=== PATIENT | female | born 1970 | race Caucasian/White ===

== ENCOUNTER 2023-10-18 19:39 | Emergency (ER) | payer MEDICARE, SELFPAY ==
[2023-10-18 19:42] VITALS: BP 133/90; PULSE 104; RESP 18; TEMP 37.6; O2SAT 97; BMI 38.8
--- NOTE | 2023-10-18 19:45 | ED_ITS ---
<Statement entered by Glendy Hebert DO - 10/18/23 21:52> I was consulted by the KANG, and we discussed the complexity of the problems being addressed. I approved the treatment and management plan for this patient's care in the emergency department, thus performing a substantive portion of the medical decision making. Glendy Hebert DO Discharge Plan Disposition Patient Disposition: Home, Self-Care Condition: Good Prescriptions Prescriptions: New sulfamethoxazole-trimethoprim [Bactrim DS] 800-160 mg tablet 1 tab PO BID 5 Days Qty: 10 0RF Referrals Follow up/Referrals: Angus Barron [Primary Care Provider] - See instructions Activity Restrictions/Add. Instructions Additional Instructions/Restrictions: Please follow-up with your PCP this week for recheck. I have recommended that you have him refer you to a colorectal surgeon for excision of your hemorrhoids. I have sent a prescription in to your pharmacy and please take all of your medication till its gone. Return to ER for any worsening signs or symptoms as needed Clinical Impressions Clinical Impression: Headache Qualifiers: Headache type: unspecified Headache chronicity pattern: acute headache I ntractability: not intractable Qualified Code(s): R51.9 - Headache, unspecified Urinary tract infectious disease Qualifiers: Urinary tract infection type: site unspecified Hematuria presence: without hematuria Qualified Code(s): N39.0 - Urinary tract infection, site not specified Hemorrhoids Qualifiers: Hemorrhoid type: unspecified Qualified Code(s): K64.9 - Unspecified hemorrhoids Instructions Patient Instructions: DI for Hemorrhoids, DI for Urinary Tract Infection (UTI), DI for Headache Print Language Print Language: Macedonian Discharge ED Provider: Glendy Hebert General Adult HPI General Chief complaint: Abdominal Pain Stated complaint: Dizziness,bleeding hemorrhoids Time Seen by Provider: 10/18/23 19:45 History of Present Illness HPI narrative: Patient presents for evaluation of multiple complaints. Patient's primary presenting complaint is headache that began today. She reports that it is frontal in nature bilateral and she has photophobia and phonophobia. It came on gradually and is not the worst headache that she is ever had. Additionally patient reports diffuse lower abdominal discomfort but denies chest pain shortness of breath fever chills hemoptysis hematuria. Additionally patient reports bright red blood per rectum with defecation. She has a known history of hemorrhoids and has never been evaluated and they have been particularly painful lately. Related Data Previous Rx's ?Medication ?Instructions ?Recorded sulfamethoxazole 800 1 tab PO BID 5 days #10 tabs 10/18/23 mg-trimethoprim 160 mg tablet (Bactrim DS) Allergies Allergy/AdvReac Type Severity Reaction Status Date / Time No Known Allergies Allergy Verified 10/18/23 20:13 [facility] Disclaimer: The information contained in this section may have been updated after the patient was seen, as this information can be updated by other users. Social History (Updated 10/18/23 @ 21:49 by UNA Krishnamurthy) Smoking Status: Current every day smoker alcohol intake: never current occupational status: retired Travel in the last 8 weeks: None ROS Obtained: Yes Systems reviewed as appropriate & no additional complaints except as documented Physical Exam General General appearance: alert and in no apparent distress Head Head exam: atraumatic and normal inspection Eye Eye exam: Present normal appearance, PERRL and EOMI; Absent conjunctival redness ENT ENT exam: Present normal exam, normal oropharynx and mucous membranes moist Neck Neck exam: Present normal inspection and full ROM; Absent tenderness or lymphadenopathy Chest Chest inspection: Present normal inspection and symmetric chest wall rise Respiratory Respiratory exam: Present normal lung sounds bilaterally; Absent accessory muscle use Cardiovascular Cardiovascular exam: Present regular rate, normal rhythm and normal heart sounds Abdominal Exam Abdominal exam: Present soft, tenderness (Mild suprapubic tenderness to palpation) and normal bowel sounds; Absent distention, guarding, rebound or rigidity Rectal Exam Rectal exam: Present normal rectal tone and hemorrhoids (She has multiple hemorrhoids primarily on the right side and none are thrombosed or engorged and no evidence of visible bleeding and there is no fresh blood on my glove after digital exam); Absent heme (-) stool Extremities Exam Extremities exam: Present normal inspection and full ROM Back Exam Back exam: Present normal inspection and full ROM; Absent tenderness Neurological Exam Neurological exam: Present alert, oriented X3, CN II-XII intact and normal gait; Absent motor sensory deficit Psychiatric Psychiatric exam: Present normal affect and normal mood Skin Skin exam: Present warm, dry and normal color Medical Decision Making Medical Records Medical records reviewed: Yes I reviewed the patient's medical records. Jeramie Inquiry Pt receiving controlled substance: No Vital Signs: 10/18/23 19:42 10/18/23 19:58 10/18/23 21:47 Temperature 99.7 F H 99 F Temperature Source Oral Oral Pulse Rate 94 H 94 H Pulse Rate [Left] 104 H Respiratory Rate 18 16 16 Blood Pressure 118/73 130/88 Blood Pressure [Right Arm] 133/90 Blood Pressure Mean [Right Arm] 104 Blood Pressure Source Automatic Cuff Automatic Cuff Blood Pressure Source [Right Arm] Automatic Cuff Blood Pressure Position Sitting Sitting Blood Pressure Position [Right Arm] Sitting 02 Sat by Pulse Oximetry 97 97 Oxygen Delivery Method Room Air Room Air Room Air Lab Data Lab results reviewed: Yes I reviewed the patient's lab results. Lab Results 10/18/23 20:05: Stool Occult Blood Negative 10/18/23 20:09: Urine Color Yellow, Urine Appearance Clear, Urine pH 7.0, Ur Specific [place] 1.020, Urine Protein Negative, Urine Glucose (UA) Negative, Urine Ketones Negative, Urine Blood Negative, Urine Nitrate Negative, Urine Bilirubin Negative, Urine Urobilinogen 0.2, Ur Leukocyte Esterase 1+ A, Urine WBC 5-10, Ur Squamous Epith Cells 5-10, Urine Bacteria 2+ 10/18/23 20:15: WBC 6.9, RBC 4.55, Hgb 14.5, Hct 43.8, MCV 96.1, MCH 31.9 H, MCHC 33.1, RDW 13.1, Plt Count 164, MPV 9.1, Neut % (Auto) 86.9 H, Lymph % (Auto) 7.3 L, [place] % (Auto) 3.7, Eos % (Auto) 1.5, Baso % (Auto) 0.6, Neut # (Auto) 6.0, Lymph # (Auto) 0.5 L, [place] # (Auto) 0.3, Eos # (Auto) 0.1, Baso # (Auto) 0.0, Total Counted 100, Neutrophils % (Manual) 91 H, Lymphocytes % (Manual) 7 L, Eosinophils % (Manual) 1, Basophils % (Manual) 1.0, Platelet Estimate Normal, Stomatocytes 1+, Sodium 138, Potassium 4.2, Chloride 108 H, Carbon Dioxide 26, Anion Gap 8.2, BUN 9, Creatinine 0.60, Estimated Creat Clear 156, Estimated GFR 105, Est GFR ( Amer) 127, Glucose 121 H, Calcium 9.7, Magnesium 1.7, Total Bilirubin 0.7, AST 28, ALT 29, Alkaline Phosphatase 95, Total Protein 7.6, Albumin 4.5, Globulin 3.1, Albumin/Globulin Ratio 1.5, Lipase 83, Urine Opiates Screen Negative, Urine Methadone Screen Negative, Ur Barbituates Screen Negative, Ur Phencyclidine Scrn Negative, Ur Amphetamines Screen Negative, U Benzodiazepines Scrn Negative, Urine Cocaine Screen Negative, U Marijuana (THC) Screen Negative 10/18/23 20:15 10/18/23 20:15 Orders (Tests/Meds): ED MEDICATIONS Discontinued Medications Generic Name Dose Route Start Last Admin Trade Name Peggy PRN Reason Stop Dose Admin Acetaminophen 1,000 mg 10/18/23 20:07 10/18/23 20:20 Acetaminophen 1,000mg/100ml Vial IV 10/18/23 20:08 1,000 mg ONCE ONE Administration Dexamethasone Sodium Phosphate 10 mg 10/18/23 20:07 10/18/23 20:20 Dexamethasone 4mg/Ml 5ml Mdv IV 10/18/23 20:08 10 mg ONCE ONE Administration Diphenhydramine HCl 50 mg 10/18/23 20:07 10/18/23 20:20 Diphenhydramine 50mg/Ml Vial IV 10/18/23 20:08 50 mg ONCE ONE Administration Lactated Ringer's 1,000 mls @ 999 mls/hr 10/18/23 20:07 10/18/23 20:20 Lactated Ringer's 1000 Ml Bag IV 10/18/23 21:07 999 mls/hr .Q1H1M ONE Administration Iopamidol 75 ml 10/18/23 20:56 10/18/23 20:57 Iopamidol-370 (76%);100ml Bottle IV 10/18/23 20:57 75 ml ONCE ONE Administration Methocarbamol 500 mg 10/18/23 20:07 10/18/23 20:21 Methocarbamol 500mg Tablet PO 10/18/23 20:08 500 mg ONCE ONE Administration Prochlorperazine Edisylate 10 mg 10/18/23 20:07 10/18/23 20:20 Prochlorperazine 10mg/2ml Vial IV 10/18/23 20:08 10 mg ONCE ONE Administration Sodium Chloride 10 ml 10/18/23 20:56 10/18/23 20:57 Sodium Chloride 0.9% 10ml Syr (Rad Only) IV 11/17/23 20:55 10 ml NEEDED PRN Administration Maintain IV Site Trimethoprim/Sulfamethoxazole 1 each 10/18/23 21:15 10/18/23 21:23 Sulfa/Trimethoprim 1 Tablet PO 10/18/23 21:16 1 each ONCE ONE Administration ORDERS Category Date Time Status CT abdomen pelvis w con Stat Cat Scan 10/18/23 20:08 Completed CBC w/Auto Diff [Complete Blood Count Auto Diff] Stat Lab 10/18/23 20:15 Completed CMP [Comprehensive Metabolic Panel] Stat Lab 10/18/23 20:15 Completed Lipase Stat Lab 10/18/23 20:15 Completed Magnesium Stat Lab 10/18/23 20:15 Completed Occult Blood,Stool Stat Lab 10/18/23 20:05 Completed UA [Urinalysis and Microscopic] Stat Lab 10/18/23 20:09 Completed UDS [Drug Screen,Urine] Stat Lab 10/18/23 20:15 Completed Urine Culture Stat Micro 10/18/23 20:09 Received Medical Decision Narrative: In summary patient is a 2-year-old female who presents to the emergency department for evaluation of multiple complaints including headache lower abdominal pain and bright red blood per rectum. Patient is hemodynamically stable upon arrival, afebrile. Physical exam is remarkable for multiple external hemorrhoids none of which are thrombosed or actively bleeding and negative gross blood on digital rectal exam. Abdominal exam shows mild suprapubic tenderness without rebound or guarding or rigidity normal bowel sounds. Patient is neurologically intact with no Focal neurologic deficits and has no tenderness on palpation of the cranium or cervical or thoracic spine. No paresthesias. She is neurovascular intact in all 4 extremities.. Differential diagnosis includes simple headache versus migraine headache versus GI bleed versus constipation versus UTI etc. Initial workup will be conducted with hematologic labs urinalysis urine drug screen CT scan abdomen pelvis. Initial interventions include crystalloid bolus headache cocktail. Initial workup reviewed by me shows that her stool for occult blood is negative hematologic labs are nonactionable and my informal interpretation of CT scan abdomen pelvis shows chronic changes but no bowel obstruction no stigmata of gastrointestinal bleeding large stool burden with slightly gas-filled bowel loops. Upon repeat evaluation patient had complete resolution of her symptoms after initial intervention. Given this patient is appropriate for discharge with prescription for Bactrim with first dose given here, referral back to her PCP in 48 hours for referral for colorectal surgery evaluation. Critical Care Critical Care Time Critical Care Time: No
[2023-10-18 19:58] VITALS: BP 118/73; PULSE 94; RESP 16; O2SAT 97
--- NOTE | 2023-10-18 20:08 | CT_ITS ---
PROCEDURE INFORMATION: Exam: CT Abdomen And Pelvis With Contrast Exam date and time: 10/18/2023 8:52 PM Age: 52 years old Clinical indication: Abdominal pain; Prior surgery; Surgery date: 6+ months; Surgery type: ; Additional info: Acute abdominal pain bright red blood per rectum TECHNIQUE: Imaging protocol: Computed tomography of the abdomen and pelvis with contrast. Radiation optimization: All CT scans at this facility use at least one of these dose optimization techniques: automated exposure control; mA and/or kV adjustment per patient size (includes targeted exams where dose is matched to clinical indication); or iterative reconstruction. Contrast material: ISOVUE; Contrast volume: 75 ml; Contrast route: IV; COMPARISON: No relevant prior studies available. FINDINGS: Liver: No suspicious liver lesions. Gallbladder and biliary ducts: Gallbladder contains gallstones. No gallbladder wall thickening or pericholecystic fluid. Pancreas: Unremarkable. Spleen: Unremarkable. Adrenal glands: Unremarkable. Kidneys and ureters: Unremarkable. Stomach and bowel: Architectural distortion of multiple small bowel loops with sharply angulated contours and matted or string-like appearance throughout the abdomen consistent with mesenteric adhesions/scarring. Multiple small bowel loops in the upper abdomen are moderately distended with gas and air-fluid levels compatible with ileus. No evidence of small bowel obstruction or acute inflammatory changes in the gastrointestinal tract. No evidence of abnormal bowel mass lesion, hematoma, or active contrast extravasation. Appendix: No evidence of appendicitis. Intraperitoneal space: No free fluid. No pneumoperitoneum. Vasculature: Unremarkable. Lymph nodes: Unremarkable. Urinary bladder: Unremarkable. Reproductive: Unremarkable. Bones/joints: No evidence of acute osseous abnormality. Soft tissues: Small fat containing umbilical hernia. No evidence of acute inflammation. IMPRESSION: 1. No acute findings in the abdomen or pelvis. No evidence of active gastrointestinal bleeding. 2. Multiple small bowel loops in the upper abdomen are moderately distended with gas and air-fluid levels compatible with ileus. No evidence of small bowel obstruction or acute inflammatory changes in the gastrointestinal tract. 3. Mesenteric adhesions throughout the abdomen consistent with chronic sequelae of prior abdominal surgery vs other prior acute or chronic inflammatory insult (e.g. inflammatory bowel disease). 4. Cholelithiasis without evidence of acute cholecystitis.
[2023-10-18] MEDS: DEXAMETHASONE 4MG/ML 5ML MDV 10 MG IV (20:20)
[2023-10-18] MEDS: ACETAMINOPHEN 1,000MG/100ML VIAL 1000 MG IV (20:20)
[2023-10-18] MEDS: LACTATED RINGERS 1000ML 1,000 ML 999 ML IV (20:20)
[2023-10-18] MEDS: diphenhydrAMINE 50MG/ML VIAL 50 MG IV (20:20)
[2023-10-18] MEDS: PROCHLORPERAZINE 10MG/2ML VIAL 10 MG IV (20:20)
[2023-10-18] MEDS: METHOCARBAMOL 500MG TABLET 500 MG PO (20:21)
[2023-10-18 20:24] LABS: Microscopic, Urine URINE MICROSCOPIC (MICROSCOPIC)
[2023-10-18 20:27] LABS: Basophils % 0.6 % (0.1-2.0); Eosinophils # 0.1 K/mm3 (0.0-0.4); Eosinophils % 1.5 % (0.1-12.0); Hematocrit 43.8 % (37.0-47.0); Hemoglobin 14.5 g/dL (12.2-16.2); Lymphocytes # 0.5 K/mm3 (0.7-4.5); Lymphocytes % 7.3 % (10-50); Mean Corpuscular HGB Conc 33.1 g/dL (31.8-35.4); Mean Corpuscular Hemoglobin 31.9 pg (27.0-31.2); Mean Corpuscular Volume 96.1 fl (81-99); Mean Platelet Volume 9.1 fl (7.4-10.4); Monocytes # 0.3 K/mm3 (0.1-1.0); Monocytes % 3.7 % (1.7-9.3); Neutrophils % 86.9 % (37.0-80.0); Platelet Count 164 K/mm3 (142-424); Red Blood Count 4.55 M/mm3 (4.20-5.40); Red Cell Distribution Width 13.1 % (11.5-17.5); White Blood Count 6.9 K/mm3 (4.8-10.8)
[2023-10-18 20:28] LABS: Appearance,Urine CLEAR (Clear); Bilirubin,Urine Negative (Negative); Blood, Urine Negative (Negative); Color,Urine YELLOW (Yellow); Glucose,Urine (UA) Negative (Negative); Ketones,Urine Negative (Negative); Leukocyte Esterase,Urine 1+ (Negative); Nitrate,Urine Negative (Negative); Protein,Urine Negative (Negative); Urobilinogen,Urine 0.2 EU/dl (0.2)
[2023-10-18 20:30] LABS: MANUAL DIFFERENTIAL MANUAL DIFFERENTIAL (MANUAL DIFF)
[2023-10-18 20:40] LABS: Benzodiazepines Screen,Urine Negative ng/ml (<200)
[2023-10-18 20:41] LABS: Amphetamine/Metha Screen,Urine Negative ng/ml (<1000); Barbiturates Screen,Urine Negative ng/ml (<200)
[2023-10-18 20:42] LABS: Cannabinoid Screen,Urine Negative ng/ml (<50); Cocaine Screen,Urine Negative ng/ml (<300)
[2023-10-18 20:43] LABS: Albumin Level 4.5 g/dl (3.5-5.0); Chloride 108 mmol/L (98-107); Methadone Screen,Urine Negative ng/ml (<300); Potassium 4.2 mmoL/L (3.5-5.1); Sodium 138 mmol/L (136-145)
[2023-10-18 20:44] LABS: Opiate Screen,Urine Negative ng/ml (<300); Phencyclidine Screen,Urine Negative ng/ml (<25)
[2023-10-18 20:46] LABS: Alanine Aminotransferase 29 U/L (12-78); Albumin/Globulin Ratio 1.5 (1.1-1.8); Alkaline Phosphatase 95 U/L (38-126); Anion Gap 8.2 mEq/L (5-15); Aspartate Amino Transferase 28 U/L (14-36); Bilirubin,Total 0.7 mg/dl (0.2-1.3); Blood Urea Nitrogen 9 mg/dl (7-17); Calcium 9.7 mg/dl (8.4-10.2); Carbon Dioxide 26 mmol/L (22.0-30.0); Creatinine Clearance Estimated 156 mL/min (50-200); Estimated Glomerular Filt Rate 105 ml/min (>60); GFR (African American) 127 ML/MIN (>60); Globulin 3.1 g/dL (1.3-3.2); Glucose 121 mg/dl (74-100); Lipase 83 U/L (23-300); Total Protein,Serum 7.6 g/dl (6.3-8.2)
[2023-10-18 20:47] LABS: Magnesium 1.7 mg/dl (1.6-2.3)
[2023-10-18 20:52] LABS: Bacteria,Urine 2+ /lpf
--- NOTE | 2023-10-18 20:55 | PC.NURSE ---
Pt to CT via Wheelchair
[2023-10-18] MEDS: IOPAMIDOL-370 (76%);100ML BOTTLE 75 ML IV (20:57)
[2023-10-18] MEDS: SODIUM CHLORIDE 0.9% 10ML SYR (RAD ONLY) 10 ML IV (20:57)
[2023-10-18] MEDS: SULFA/TRIMETHOPRIM 1 TABLET 1 EACH PO (21:23)
--- NOTE | 2023-10-18 21:28 | PC.NURSE ---
Pt ambulatory to restroom
[2023-10-18 21:41] LABS: Eosinophils % 1 % (0-3); Lymphocytes % 7 % (10-50); Neutrophils % 91 % (42-76); Platelet Estimate Normal; Stomatocytes 1+; Total Cells Counted 100
[2023-10-18 21:45] LABS: Occult Blood,Stool Negative (Negative)
[2023-10-18 21:47] VITALS: BP 130/88; PULSE 94; RESP 16; TEMP 37.2; O2SAT 97
== END 2023-10-18 21:48 | disposition home or self-care (01) ==
PROVIDERS: Physician Assistant; Emergency Provider Emergency Medicine; PCP Pediatrics
DX: N39.0 Urinary tract infection, site not specified (principal); B96.89 Other specified bacterial agents as the cause of diseases classified elsewhere; R10.30 Lower abdominal pain, unspecified; R51.9 Headache, unspecified; K64.9 Unspecified hemorrhoids; R42 Dizziness and giddiness; F17.210 Nicotine dependence, cigarettes, uncomplicated
CPT/HCPCS: 74177; 80053; 80307; 81001; 82272; 83690; 83735; 85007; 85025; 85027; 87086; 96361; 96374; 96375; 99285; G0328; J0131; J0780; J1100; J1200; J7120; Q9967

== ENCOUNTER 2024-10-14 10:38 | Emergency (ER) | payer MEDICARE, SELFPAY ==
[2024-10-14 10:45] VITALS: BP 146/84; PULSE 92; RESP 20; TEMP 36.8; O2SAT 96; BMI 43.9
--- NOTE | 2024-10-14 10:55 | CT_ITS ---
PROCEDURE INFORMATION: Exam: CT Head Without Contrast Exam date and time: 10/14/2024 11:25 AM Age: 53 years old Clinical indication: Pain; Headache; Additional info: Bifrontal ROSSI TECHNIQUE: Imaging protocol: Computed tomography of the head without contrast. Radiation optimization: All CT scans at this facility use at least one of these dose optimization techniques: automated exposure control; mA and/or kV adjustment per patient size (includes targeted exams where dose is matched to clinical indication); or iterative reconstruction. COMPARISON: No relevant prior studies available. FINDINGS: Brain: No evidence of acute parenchymal hemorrhage, extra-axial collection or local regional mass effect. Cerebral ventricles: The ventricles, sulci and cisterns are normal in size and configuration. No hydrocephalus or midline structure shift Pituitary gland and sella: Sellar/parasellar structures, orbits and craniocervical junction are unremarkable Paranasal sinuses: Visualized sinuses are unremarkable. No fluid levels. Mastoid air cells: Visualized mastoid air cells are well aerated. Bones: No calvarial fracture Soft tissues: Unremarkable. IMPRESSION: No acute intracranial abnormality. No calvarial fracture.
--- NOTE | 2024-10-14 10:58 | [facility].EDGENADL ---
Discharge Plan Disposition Patient Disposition: Home, Self-Care Prescriptions Prescriptions: New azithromycin [Zithromax Z-Scout] 250 mg tablet 250 mg PO DAILY 4 Days Qty: 4 0RF Rx Instructions: Started on 10-15-2024 No Action sulfamethoxazole-trimethoprim [Bactrim DS] 800-160 mg tablet 1 tab PO BID 5 Days Qty: 10 0RF Referrals Follow up/Referrals: Angus Barron [Primary Care Provider, Medical] - See instructions Activity Restrictions/Add. Instructions Additional Instructions/Restrictions: At this time it was felt you are safe to be discharged home. If new or worsening symptoms please do not hesitate to return the emergency department. Please take antibiotics as prescribed and if your headache continues follow-up with your family doctor as soon as you are able next week. Clinical Impressions Clinical Impression: Headache, Cat scratch Print Language Print Language: Jordanian Discharge ED Provider: Kike Schmidt General Adult HPI General Chief complaint: Upper Respiratory Infection Stated complaint: Scratch by Cat 2 days ago; Not feeling well Time Seen by Provider: 10/14/24 10:45 Mode of Arrival: Ambulatory Source of Information: Patient and Spouse Description of Symptoms (Recalled from ER Triage Doc. by RN): pt is here for flu like s/s that have been going on since yesterday. this included headache and nausea and patient also noted she got scratched by a cat two days ago. History of Present Illness HPI narrative: Patient is a 53-year-old female with past medical history of chronic frequent bitemporal headaches who presents emergency department for evaluation of feeling unwell after a cat scratch. Patient had a cat scratch a few days ago on her left upper extremity and over the last 24 hours has had generalized weakness, bitemporal headache. No vision changes reported. Tdap up-to-date. Patient no longer has her menstrual period. Please note that above description of symptoms, in this electronic medical record under categorization of recalled from ER triage doctor by RN are reflective of an initial nursing assessment, however, is not reflective of my full history and physical exam that was personally taken and clarified. Consequentially, this preceding description of symptoms, which may include the patient's categorized chief complaint in the EMR, do not reflect my personal clinical impression, and the ultimate description of history of present illness and patient stated complaints should be deferred to this section of the note. Unless stated otherwise or congruent with this section of the note, additional signs, symptoms, or incongruence should be interpreted as inaccurate with my clinical impression. Related Data Previous Rx's ?Medication ?Instructions ?Recorded sulfamethoxazole 800 1 tab PO BID 5 days #10 tabs 10/18/23 mg-trimethoprim 160 mg tablet (Bactrim DS) azithromycin 250 mg tablet 250 mg PO DAILY cat scratch 4 days 10/14/24 (Zithromax Z-Scout) #4 tabs Allergies Allergy/AdvReac Type Severity Reaction Status Date / Time No Known Allergies Allergy Verified 10/18/23 20:13 [facility] Disclaimer: The information contained in this section may have been updated after the patient was seen, as this information can be updated by other users. Social History (Updated 10/18/23 @ 21:49 by UNA Krishnamurthy) Smoking Status: Current every day smoker alcohol intake: never current occupational status: retired Travel in the last 8 weeks?: None Have you lived/traveled outside [place] in past 30 days?: No Contact w/someone who lives/traveled outside [place] past 30 days?: No Exposure to someone with infectious disease in past 14 days?: No Do you have a fever (greater than 100.4 F or 38 C)?: No Have you tested positive for COVID-19?: No Exposed to someone with COVID-19 in past 14 days?: No Do you have a sore throat?: No Do you have a cough?: No Do you have any weakness?: Yes Do you have any diarrhea?: No Are you experiencing any unusual bleeding?: No Do you have any muscle aches/pain?: No Do you have any abdominal pain?: No Are you experiencing loss of taste or smell?: No ROS Obtained: Yes Systems reviewed as appropriate & no additional complaints except as documented Physical Exam General General appearance: alert Comment: Appearing uncomfortable in bed Head Head exam: atraumatic and normocephalic Eye Eye exam: Present PERRL and EOMI ENT ENT exam: Present mucous membranes moist Neck Neck exam: Present normal inspection Chest Chest inspection: Present normal inspection and symmetric chest wall rise Respiratory Respiratory exam: Present normal lung sounds bilaterally; Absent respiratory distress Cardiovascular Cardiovascular exam: Present regular rate and normal rhythm Abdominal Exam Abdominal exam: Present soft; Absent tenderness Extremities Exam Extremities exam: Present other (Scratches on the left upper extremity adjacent to the elbow. No obvious lymphadenitis palpable) Neurological Exam Neurological exam: Present alert and CN II-XII intact; Absent motor sensory deficit Psychiatric Psychiatric exam: Present normal affect Skin Skin exam: Present warm and dry Medical Decision Making Medical Records Screening: Per USPSTF and CDC recommendations, given the prevalence of disease in our region, it is our hospital?s policy to screen for HIV and viral Hepatitis for all patients aged 18 and over and those with ongoing risk factors. [place] Inquiry Pt receiving controlled substance: No Vital Signs: 10/14/24 10:45 Temperature 98.2 F Temperature Source Oral Pulse Rate [Left Radial] 92 H Respiratory Rate 20 Blood Pressure [Right Arm] 146/84 H Blood Pressure Mean [Right Arm] 104 02 Sat by Pulse Oximetry 96 Oxygen Delivery Method Room Air Lab Data Lab Results 10/14/24 11:00: SARS-CoV-2 (PCR) Not detected, Influenza A Untype (PCR) Not detected, Influenza Type B (PCR) Not detected 10/14/24 11:11: WBC 9.7, RBC 4.41, Hgb 13.9, Hct 40.2, MCV 91.2, MCH 31.5 H, MCHC 34.6, RDW 12.2, Plt Count 208, MPV 10.3, Neut % (Auto) 83.8 H, Lymph % (Auto) 12.7, [place] % (Auto) 2.3, Eos % (Auto) 0.4, Baso % (Auto) 0.3, Neut # (Auto) 8.1 H, Lymph # (Auto) 1.2, [place] # (Auto) 0.2, Eos # (Auto) 0.0, Baso # (Auto) 0.0, Sodium 134 L, Potassium 4.0, Chloride 103, Carbon Dioxide 23, Anion Gap 12.0, BUN 8, Creatinine 0.50 L, Estimated Creat Clear 93, Estimated GFR 129, Est GFR ( Amer) 156, Glucose 128 H, Calcium 9.4, Total Bilirubin 1.1, AST 32, ALT 31, Alkaline Phosphatase 97, Total Protein 7.8, Albumin 4.7, Globulin 3.1, Albumin/Globulin Ratio 1.5 10/14/24 11:11 10/14/24 11:11 Orders (Tests/Meds): ED MEDICATIONS Generic Name Dose Route Start Last Admin Trade Name Freq PRN Reason Stop Dose Admin Lactated Ringer's 1,000 mls @ 999 mls/hr 10/14/24 10:55 10/14/24 11:07 Lactated Ringer's 1000 Ml Bag IV 10/14/24 11:55 999 mls/hr .[id number] ONE Administration Discontinued Medications Generic Name Dose Route Start Last Admin Trade Name Freq PRN Reason Stop Dose Admin Acetaminophen 1,000 mg 10/14/24 10:55 10/14/24 11:07 Acetaminophen 500mg Tab PO 10/14/24 10:56 1,000 mg ONCE ONE Administration Azithromycin 500 mg 10/14/24 10:57 10/14/24 11:07 Azithromycin 250mg Tablet PO 10/14/24 10:58 500 mg ONCE ONE Administration Diphenhydramine HCl 50 mg 10/14/24 10:55 10/14/24 11:07 Diphenhydramine 50mg/Ml Vial IV 10/14/24 10:56 50 mg ONCE ONE Administration Prochlorperazine Edisylate 5 mg 10/14/24 10:55 10/14/24 11:07 Prochlorperazine 10mg/2ml Vial IV 10/14/24 10:56 5 mg ONCE ONE Administration ORDERS Category Date Time Status CT head/brain wo con Stat Cat Scan 10/14/24 10:55 Completed CBC w/Auto Diff [Complete Blood Count Auto Diff] Stat Lab 10/14/24 11:11 Completed CMP [Comprehensive Metabolic Panel] Stat Lab 10/14/24 11:11 Completed Rapid PCR Covid and Flu A/B Stat Lab 10/14/24 11:00 Completed Medical Decision Narrative: In summary patient is a 53-year-old female past medical history described above presents emergency department for evaluation of bitemporal headache in setting of cat scratch and generally feeling unwell. Patient is hemodynamically stable and nontoxic-appearing upon arrival, appears uncomfortable, afebrile, nonfocal neurologic exam. Shared decision-making discussion was had with respect to imaging given that she has these headaches frequently. We will proceed with CT imaging of the head at this time. Differential includes primary headache, intracranial hemorrhage, viral syndrome, among others. Will respect to her cat scratch disease she does not have any obvious regional lymphadenitis however her body habitus makes it difficult to palpate these lymph nodes. Benefits outweigh the risk for treatment will treat with azithromycin first dose administered here. Headache cocktail will be administered. Tdap is up-to-date. Workup reviewed by me, hematologic labs are nonactionable no significant leukocytosis no transfusable anemia, no CINDY or critical electrolyte abnormality. Viral swab negative. Noncontrasted CT scan informally visualized by me, no acute large intra-axial hemorrhage or mass affect. Formal read shows no acute intracranial abnormality. Upon repeat evaluation patient is resting in bed, significantly improved headache, nonfocal exam. Given this patient is appropriate for outpatient management at this time and out of an abundance of caution will be treated with a short course of azithromycin for cat scratch and was given return precautions. Critical Care Critical Care Time Critical Care Time: No
--- OUTSIDE RECORDS SUMMARY | 2024-10-14 11:00 | XMS_ITS | Clinical Summary ---
Author Organization [facility] Address [address] [place] [address] Phone Care Team Providers Care Field Specialist Name Role Phone Jeferson Barron MD Primary Care Provider [phone] Allergies No known active allergies Medications linaCLOtide (LINZESS) 145 mcg Oral Capsule Take 1 Capsule by mouth daily. 60 Capsule 2 07/12/19 24 Active atorvastatin (LIPITOR) 20 mg Oral TabletIndications: Mixed hyperlipidemia Take 1 Tablet by mouth daily. 90 Tablet 3 05/30/19 25 Active budesonide-glycopy r-formoterol (BREZTRI AEROSPHERE) 160-9-4.8 mcg/actuation Inhl HFA Aerosol InhalerIndications :COPD, moderate ([facility]) Inhale 2 Puffs into the lungs 2 times daily. 10.7 g 11 05/30/19 25 Active ondansetron (ZOFRAN-ODT) 4 mg Oral Tablet, Rapid DissolveIndication s:Nausea DISSOLVE 1 TABLET ON TONGUE EVERY DAY NEEDED FOR NAUSEA 30 Tablet 2 09/19/19 25 Active ondansetron (ZOFRAN-ODT) 4 mg Oral Tablet, Rapid DissolveIndication s:Nausea DISSOLVE 1 TABLET ON TONGUE EVERY DAY NEEDED FOR NAUSEA 30 Tablet 2 06/16/19 25 025 Discontinued Active Problems Patient Care Coordination No te Formatting of this note migh t be different from the original. [facility] audit completed by Savi Anguiano RN on 12/21/2021. Problem Noted Date Diagnosed Date COPD, moderate 05/29/2024 Assessment & Plan (05/29/2024 3:59 PM EDT): New diagnosis of COPD today. Will start on Breztri per below and follow-up response at next visit. Orders: lbttkoyeeo-dtxgsmth-sumtjtcgil (BREZTRI AEROSPHERE) 160-9-4.8 mcg/actuation Inhl HFA Aerosol Inhaler; Inhale 2 Puffs into the lungs 2 times daily. Mixed incontinence 03/10/2014 Mixed hyperlipidemia 03/10/2014 Overview (03/26/2021): The 10-year ASCVD risk score ([place] Jr., et al., 2013) is: 7.5% Atorvastatin 20 mg daily. Assessment & Plan (05/29/2024 3:59 PM EDT): Continue statin for cardiovascular risk reduction Orders: HEMOGLOBIN A1C; Future COMPREHENSIVE METABOLIC PANEL; Future TSH REFLEX; Future LIPID PANEL REFLEX; Future atorvastatin (LIPITOR) 20 mg Oral Tablet; Take 1 Tablet by mouth daily. Tobacco abuse 05/04/2013 Gastroesophageal reflux disease without esophagi tis 05/04/2013 Obesity (BMI 30-39.9) 05/04/2013 Resolved Problems Problem Noted Date Diagnosed Date Resolved Date Tobacco abuse counseling 05/04/201301/2025 Constipation 05/04/2013 09/09/2014 Encounters Date Type Department Care Team Description 09/18/2024 Refill [facility] [address] [place] [address] Jeferson Barron MD Medication Refill from Last 3 Months Immunizations Immunization Administration Dates Next Due Hepatitis B (Recombinant), Adjuvanted 05/30/2023 ,10/07/2022 Influenza Seasonal Injectable PF 05/29/2024 Influenza Vaccine Quadrivalent PF 01/24/2023, Influenza Vaccine, Unspecified Formulation 12/08 Influenza Virus Vaccine Quadrivalant, Flublok ,03/24/2021 Moderna SARS-CoV-2 Booster V accine 18+ Yrs (Light Blue Border) 03/24/2021 Pfizer SARS-CoV-2 Bivalent B ooster Vaccine 12+ Years ([place] border) 01/14/2022 QQTechnology SARS-CoV-2 Vaccine Kai-sucrose 12+ Yrs 1 03/26/2022 Pneumococcal Conjugate Vaccine 20 Valent 023 Tdap 12/08/2016,05/04/2013 Zoster Recombinant 03/30/2021 Surgical History Surgery Date Site/Laterality Comments SECTION X1 Medical History Medical History Date Comments Hyperlipidemia Family History Medical History Relation Name Comments Unknown Father Arthritis Mother had knee surger y High Blood Pressure Mother Diabetes Other niece Liver Disease Sister 4 Heart Disease Sister 5 mi age 50 Breast Cancer Sister 6 Diabetes Son Relation Name Status Comments Brother 1 Alive Brother 2 Alive Brother 3 Alive Father Maternal Grandfather Maternal Grandmother Mother Other Paternal Grandfather Paternal Grandmother Sister 1 Alive Sister 2 Alive Sister 3 Alive Sister 4 Sister 5 Sister 6 Son Social History Tobacco Use Types Packs/Day Years Used Date Smoking Tobacco: Every Day Cigarettes 1 38.6 Started: 03/21/1986 Smokeless Tobacco: Never Tobacco Cessation:Ready to Q uit: Not Asked; Counseling Given: Not Answered Alcohol Use Standard Drinks/Week Comments No 0 (1 standard drink = 0.6 oz pur e alcohol) PHQ-2 Answer Date Recorded PHQ-2 Total Score 0 05/29/2024 Sexually Active Control Partners Comments Yes Male Comments No Sex and Gender Information Value Date Recorded Sex Assigned at Not on file Legal Sex Female 3:49 AM EDT Gender Identity Not on file Sexual Orientation Not on file Obstetrics History Para Term AB IAB SAB Ectopic Multiple Livin g Live Births 3 3 3 3 3 Date Outcome GA Total Labor Labor/2nd/3rd Weight Sex Type Anes PTL Lis A1 A5 Name Clin Term 10 lb 10 oz (4.819 kg) M CS-Un spec Comments:Too big, leonid ch Term M Vag-S pont Term M Vag-S pont Comments No problems with pregnancies or deliveries except Redd. Last Filed Vital Signs Vital Sign Reading Time Taken Comments Blood Pressure 110/78 06/08/2024 2:52 PM EDT Pulse 82 06/08/2024 2:52 PM EDT Temperature 36.7 C (98.1 F) 06/08/2024 2:52 PM EDT Respiratory Rate 18 06/08/2024 2:52 PM EDT Oxygen Saturation 98% 06/08/2024 2:52 PM EDT Inhaled Oxygen Concentration - - Weight 91.2 kg (201 lb) 06/08/2024 2:52 PM EDT Height 152.4 cm (5') 05/29/2024 3:36 PM EDT Body Mass Index 39.26 05/29/2024 3:36 PM EDT Plan of Treatment Health Maintenance Due Date Last Done Comments FIT 12/18/2015 Sigmoidoscopy 12/18/2015 Virtual Colonography 12/18/2015 Zoster (2 of 2) 05/25/2021 03/30/2021 COVID-19 Vaccine ( season) 2023 01/24/2023, 01/14/2022, 03/24/2021, Additional history exists Cologuard 04/01/2024 04/01/2021, 04/01/2021 Influenza Vaccine (#1) 2024 , 01/24/2023, 01/14/2022, Additional history exists Low Dose Lung Cancer Screening 05/21/2025 05/21/2024, 05/12/2023, 04/26/2022 Wellness Exam Medicare 05/30/2025 5, 03/29/2022, 03/24/2021 Breast Cancer Screening 05/21/2026 05/22/19, 04/04/2023, 04/05/2022, Additional history exists DTaP/TDaP/Td (3 - Td or Tdap) 12/08/2026 12/08/2016, 05/04/2013 Pap Smear 06/09/2027 06/08/2024, 03/21, 06/01/2013 Colon Cancer Screening 08/16/2028 Colonoscopy 08/16/2028 08/17/2023 Cervical Cancer Screening 06/08/2029 HPV/Pap Cotest 06/08/2029 06/08/2024 Pneumococcal Vaccine 50+ Completed 10/07/2022 Hepatitis B Vaccine Completed 05/30/2023, Meningococcal B Vaccine Aged Out No l onger eligible based on patient's age to complete this topic Goals Goal Patient Goal Type Associated Problems Recent Progress Patient-Stated? Author Maintain a healthy diet, exercise regularly and maintain an ideal body weight General No Jeferson Barron MD Stay Tobacco Free Lifestyle No Jeferson Barron MD Weight < 175 lb (79.379 kg) Weight 201 lb (91.2 kg)( 2:52 PM EDT) No Meredith Gan MD Procedures Procedure Name Priority Date/Time Associated Diagnosis Comments SHAFT REPAIRER CYTOLOGY REQUEST (PAP ONLY) Routine 06/08/2024 3:05 PM EDT Pap smear for cervical cancer screening MM MAMMO DIGITAL [place] SCREEN BILAT Routine 05/21/2024 12:23 PM EST Encounter for screening mammogram for malignant neoplasm of breast CT LUNG CANCER SCREENING LOW DOSE Routine 05/21/2024 12:04 PM EST Screening for malignant neoplasm of respiratory organ Personal history of tobacco use, presenting hazards to health COLONOSCOPY Routine 08/17/2023 1:20 PM EDT Rectal bleeding Constipation, unspecified constipation type COLOGUARD Routine 04/01/2021 2:00 PM EST Special screening for malignant neoplasms, colon Screening for malignant neoplasm of the rectum from Last 3 Months or Most Recently Relevant to Health Maintenance Results * SHAFT REPAIRER CYTOLOGY REQUEST (PAP ONLY) (06/08/2024 3:05 PM EDT) CASE REPORT Gynecologic Cytology Report Case: [id number] Authorizing Provider: Lisa Bryant DO Collected: 06/08/2024 1505 Ordering Location: [facility] Received: 06/08/2024 1505 First Screen: Marian Cui CT Specimen: LIQUID-BASED PAP - CERVICAL/ENDOCERV ICAL, Cervix, Endocervical 06/12/2024 1:23 PM EDT [facility] FINAL DIAGNOSIS Negative for intraepithelial lesion or malignancy 06/12/2024 1:23 PM EDT [facility] at 1323 EDT MICROSCOPIC DESCRIPTION Microscopic examination is performed and the findings corroborate the diagnosis. 06/12/2024 1:23 PM EDT [facility] PAP SMEAR ADEQUACY Satisfactory for evaluation 06/12/2024 1:23 PM EDT [facility] PAP ORGANISMS NOTED Shift in arslan suggestive of bacterial vaginosis. 06/12/2024 1:23 PM EDT [facility] ENDOCERVICAL T-ZONE Transformation zone present 06/12/2024 1:23 PM EDT [facility] EMBEDDED IMAGES 1:23 PM EDT [facility] PAP DISCLAIMER The Pap Smear is a screening test that aids in the detection of cervical cancer and cancer precursors. Both false positive and false negative results can occur. The test should be used at regular intervals, and positive results should be confirmed before definitive therapy. Processed using the ThinPrep Tare Worker Automated cytology screening device (Re-Compose). 06/12/2024 1:23 PM EDT [facility] Thin Prep ENDOCERVICAL STRUCTURE / Unknown 06/08/2024 3:05 PM EDT 06/08/2024 3:05 PM EDT us Lisa Bryant DO CYTOLOGY ORDERABLES Final Re sult [facility] [address] [place] [address] * MM MAMMO DIGITAL [place]ON SCREEN BILAT (05/21/2024 12:23 PM EST) Anatomical Region Laterality Modality Breast Bilateral Mammography 05/21/2024 12:2 3 PM EST Impressions 05/21/2024 1:06 PM EST Negative ([id number]) RECOMMENDATION: Routine Screening Mammogram in 1 Year Bilateral . . COMMENTS: Narrative 05/21/2024 1:06 PM EST EXAM: MM MAMMO DIGITAL [place] SCREEN BILAT EXAM DATE: 05/21/2024 12:23 PM INDICATION: Z12.31-Encounter for screening mammogram for malignant neoplasm of brkjwu-NSU-68-CM COMPARISON STUDIES: Compared with prior studies the most recent being 04/04/2023 MM MAMMO DIGITAL [place] SCREEN BILAT at [facility] 04/05/2022 MM MAMMO DIGITAL [place] SCREEN BILAT at [facility] 08/01/2013 MM MAMMO DIGITAL DIAGNOSTIC RIGHT at PSYCHIATRIC TISSUE DENSITY: There are scattered areas of fibroglandular density. FINDINGS: No mammographic evidence of malignancy. Procedure Note Blanche Dean MD - 05/21/2024 EXAM: MM MAMMO DIGITAL [place]ON SCREEN BILAT EXAM DATE: 05/21/2024 12:23 PM INDICATION: Z12.31-Encounter for screening mammogram for malignantneoplasm of hwhqca-KWH-20-CM COMPARISON STUDIES: Compared with prior studies the most recent being 04/04/2023 MM MAMMO DIGITAL [place] SCREEN BILAT at [facility] 04/05/2022 MM MAMMO DIGITAL [place] SCREEN BILAT at [facility] 08/01/2013 MM MAMMO DIGITAL DIAGNOSTIC RIGHT at PSYCHIATRIC TISSUE DENSITY: There are scattered areas of fibroglandular density. FINDINGS: No mammographic evidence of malignancy. IMPRESSION: Negative ([id number]) RECOMMENDATION: Routine Screening Mammogram in 1 Year Bilateral . . COMMENTS: us Jeferson aBrron MD IM MAMMOGRAPHY ORDERABLES Fin al Result * CT LUNG CANCER SCREENING LOW DOSE (05/21/2024 12:04 PM EST) Anatomical Region Laterality Modality Lung Computed Tomogra phy 05/21/2024 12:0 4 PM EST Impressions 05/21/2024 12:12 PM EST Unremarkable low-dose screening chest CT. RECOMMENDATION: Low Dose CT - 1 Yr A summary letter communicating these results will be mailed to the patient's address of record. - Note: Radiology results need to be interpreted within a comprehensive clinical context. If you have questions about the radiology report, please contact the office of the ordering clinician. [email or web address] Narrative 05/21/2024 12:[address] LUNG CANCER SCREENING LOW DOSE 05/21/2024 12:04 PM CLINICAL HISTORY: Asymptomatic patient meeting NCCN high risk criteria for lung screening. Z12.2-Encounter for screening for malignant neoplasm of respiratory ydgszo-URL-34-CM Z87.891-Personal history of nicotine acagjbabiu-KFX-10-CM. COMPARISON: May 12, 2023 PROCEDURE COMMENTS: Noncontrast, low-dose, multidetector CT chest per department protocol. Interactive 3-D postprocessing done by the reviewing physician on a SYNGO workstation, using Maximum intensity projections (MIPS) and SYNGO LUNG CAD for improved lesion detection. Griffin images archived to PACS. Dose 1 : CT DLP Total : 79.2 mGycm DLP Spiral Max : 79.2 mGycm Maximum CTDI Vol : 2.4 mGy SSDE : 2.784 mGy SSDE Diameter : 31.7 cm SSDE Source : myVBO FINDINGS: No suspicious pulmonary nodule. 5 mm nodule in the anterobasal right lower lobe seen on image 161, stable. No acute inflammatory process. Heart and mediastinum unremarkable. Coronary artery calcification: None. FOLLOW-UP CODE: Lung-RADS Category 1: Negative: No nodule or definitely benign nodule(s). Continued ANNUAL LOW-DOSE SCREENING CT SCAN (IMG [id number]) suggested if age <78. Lung-RADS Modifier N/A: No Modifier Needed Procedure Note Giovanni Byrd MD - 05/21/2024 CT LUNG CANCER SCREENING LOW DOSE 05/21/2024 12:04 PM CLINICAL HISTORY: Asymptomatic patient meeting NCCN high risk criteria forlung screening. Z12.2-Encounter for screening for malignant neoplasm ofrespiratory bipaqg-ZKY-45-CM Z87.891-Personal history of nicotine wycqdukndk-ORC-98-CM. COMPARISON: May 12, 2023 PROCEDURE COMMENTS: Noncontrast, low-dose, multidetector CT chest perdepartment protocol. Interactive 3-D postprocessing done by the reviewing physicianon a SYNGO workstation, using Maximum intensity projections (MIPS) and SYNGOLUNG CAD for improved lesion detection. Griffin images archived to PACS. Dose 1 : CT DLP Total : 79.2 mGycm DLP Spiral Max : 79.2 mGycm Maximum CTDI Vol : 2.4 mGy SSDE : 2.784 mGy SSDE Diameter : 31.7 cm SSDE Source : FlexyMinda FINDINGS: No suspicious pulmonary nodule. 5 mm nodule in the anterobasalright lower lobe seen on image 161, stable. No acute inflammatory process.Heart and mediastinum unremarkable. Coronary artery calcification: None. FOLLOW-UP CODE: Lung-RADS Category 1: Negative: No nodule or definitelybenign nodule(s). Continued ANNUAL LOW-DOSE SCREENING CT SCAN (IM [id number])suggested if age <78. Lung-RADS Modifier N/A: No Modifier Needed IMPRESSION: Unremarkable low-dose screening chest CT. RECOMMENDATION: Low Dose CT - 1 Yr A summary letter communicating these results will be mailed to thepatient's address of record. - Note: Radiology results need to be interpreted within a comprehensiveclinical context. If you have questions about the radiology report, please contactthe office of the ordering clinician. [email or web address] Jeferson Barron MD [facility] CT ORDERABLES Final Result * COLONOSCOPY (08/17/2023 1:20 PM EDT) Anatomical Region Laterality Modality Endoscopy Narrative 08/17/2023 1:19 PM EDT Table formatting from the original result was not included. Findings One sessile, adenomatous-appearing polyp measuring 5-9 mm in the cecum; performed cold snare with complete en bloc removal and retrieved specimen Internal medium hemorrhoids observed during retroflexion Recommendation Await pathology results - Repeat colonoscopy likely in 5 years Indication Rectal bleeding, Constipation, unspecified constipation type Staff Staff Role Barry Bailey MD Performing Provider Arely Scherer RN Developer Analyst Perry Mayers MD Anesthesiologist Medications See Anesthesia Record. Preprocedure A history and physical has been performed, and patient medication allergies have been reviewed. The patient's tolerance of previous anesthesia has been reviewed. The risks and benefits of the procedure and the sedation options and risks were discussed with the patient. All questions were answered and informed consent obtained. ASA 2 - Patient with mild systemic disease Details of the Procedure The patient underwent monitored anesthesia care, which was administered by an anesthesia professional. The patient's blood pressure, heart rate, level of consciousness, oxygen, respirations, ECG and ETCO2 were monitored throughout the procedure. A digital rectal exam was performed. The scope was introduced through the anus and advanced to the cecum. Retroflexion was performed in the rectum. Bowel prep was adequate. The patient's estimated blood loss was minimal (<5 mL). The procedure was not difficult. The patient tolerated the procedure well. There were no apparent adverse events. Patient provided education and educated on specific discharge instructions. Patient educated on medications given during the procedure and new medications for discharge. Patient verbalizes understanding of discharge education. Patient stable and awaiting transport for discharge. Events Procedure Events Event Event Time ENDO SCOPE IN TIME 08/17/2023 1:11 PM ENDO CECUM REACHED 08/17/2023 1:13 PM ENDO SCOPE OUT TIME 08/17/2023 1:18 PM Specimens ID Type Source Tests Collected by Time 1 : Cecal polypectomy via cold snare Tissue Large Intestine, Cecum PATHOLOGY TISSUE REQUEST Barry Bailey MD 08/17/2023 1314 Anesthesia Event Time In Patient In - Proc. Room 01:02 PM Barry Bailey MD ENDOSCOPY PROCEDURE ORDERABL ES Final Result * COLOGUARD (04/01/2021 2:00 PM EST) COLOGUARD CLINICAL REPORT Negative Negative [facility] Comment: NEGATIVE TEST RESULT. A negative Cologuard result indicates a low likelihood that a colorectal cancer (CRC) or advanced adenoma (adenomatous polyps with more advanced pre-malignant features) is present. The chance that a person with a negative Cologuard test has a colorectal cancer is less than 1 in 1500 (negative predictive value >99.9%) or has an advanced adenoma is less than 5.3% (negative predictive value 94.7%). These data are based on a prospective cross-sectional study of 10,000 individuals at average risk for colorectal cancer who were screened with both Cologuard and colonoscopy. (Jhonny Gregorio al, N Engl J Med 2014;370(14):2691-5456) The normal value (reference range) for this assay is negative. COLOGUARD RE-SCREENING RECOMMENDATION: Periodic colorectal cancer screening is an important part of preventive healthcare for asymptomatic individuals at average risk for colorectal cancer. Following a negative Cologuard result, the [place] [employer] and U.S. Multi-Society Task Force screening guidelines recommend a Cologuard re-screening interval of 3 years. References: [place] [employer] Guideline for Colorectal Cancer Screening: https://www.cancer.org/cancer/upzke-tfuoek-iyyqhx/njmkvyylp-ykvjymsin-uwskwas/ac s-rec ommendations.html.; Fly DK, Abby MASON, Elijah SearsK, Colorectal Cancer Screening: Recommendations for Physicians and Patients from the U.S. Multi-Society Task Force on Colorectal Cancer Screening , Am J Gastroenterology 2017; 112:6640-8263. TEST DESCRIPTION: Composite algorithmic analysis of stool DNA-biomarkers with hemoglobin immunoassay. Quantitative values of individual biomarkers are not reportable and are not associated with individual biomarker result reference ranges. Cologuard is intended for colorectal cancer screening of adults of either sex, 45 years or older, who are at average-risk for colorectal cancer (CRC). Cologuard has been approved for use by the U.S. FDA. The performance of Cologuard was established in a cross sectional study of average-risk adults aged 50-84. Cologuard performance in patients ages 45 to 49 years was estimated by sub-group analysis of near-age groups. Colonoscopies performed for a positive result may find as the most clinically significant lesion: colorectal cancer [4.0%], advanced adenoma (including sessile serrated polyps greater than or equal to 1cm diameter) [20%] or non- advanced adenoma [31%]; or no colorectal neoplasia [45%]. These estimates are derived from a prospective cross-sectional screening study of 10,000 individuals at average risk for colorectal cancer who were screened with both Cologuard and colonoscopy. (Jhonny Gregorio al, N Engl J Med 2014;370(14):6216-0558.) Cologuard may produce a false negative or false positive result (no colorectal cancer or precancerous polyp present at colonoscopy follow up). A negative Cologuard test result does not guarantee the absence of CRC or advanced adenoma (pre-cancer). The current Cologuard screening interval is every 3 years. ([place] [employer] and U.S. Multi-Society Task Force). Cologuard performance data in a 10,000 patient pivotal study using colonoscopy as the reference method can be accessed at the following location: www.[employer].Everlaw/results. Additional description of the Cologuard test process, warnings and precautions can be found at www.colHangtimerd.com. Stool 04/01/2021 2:00 PM EST 04/03/2021 8:27 AM EST us Jeferson Barron MD EXACT SCIENCE - ORDERABLES Fin al Result Performing Organization Address City/State/[facility] Co de Phone Number [employer], [place] [address], [facility] [address] [phone] from Last 3 Months or Most Recently Relevant to Health Maintenance Insurance [employer] MEDICARE HMO MR [employer] MEDICARE HMO MR Care Teams Field Specialist Relationship Specialty Start Date End Date Jeferson Barron MD [address] [place] [address] [place] [address] PCP - General Family Medicine 03/24/21
--- OUTSIDE RECORDS SUMMARY | 2024-10-14 11:00 | XMS_ITS | Encounter Summary ---
Author Organization [facility] [place] [address] Care Team Providers Care Aerobics Teacher Name Role Phone Jeferson Barron MD Primary Care Provider [phone] Reason for Visit * Reason Comments Medication Refill Encounter Details Date Type Department Care Team (Late st Contact Info) Description 09/18/2024 Refill SEP Ag [address] [place] [address] Jeferson Barron MD [address] [place] [address] [place] [address] Medication Refill Social History Tobacco Use Types Packs/Day Years Used Date Smoking Tobacco: Every Day Cigarettes 1 38.6 Started: 03/21/1986 Smokeless Tobacco: Never Alcohol Use Standard Drinks/Week Comments No 0 (1 standard drink = 0.6 oz pur e alcohol) PHQ-2 Answer Date Recorded PHQ-2 Total Score 0 05/29/2024 Sexually Active Control Partners Comments Yes Male Comments No Sex and Gender Information Value Date Recorded Sex Assigned at Not on file Legal Sex Female 3:49 AM EDT Gender Identity Not on file Sexual Orientation Not on file documented as of this encounter Functional Status * Is the person deaf or does he/she have serious difficulty hearing? Answer Date of Assessment Author No 03/24/2021 1:14 PM Anna Abebe MA * Is the person blind or does he/she have serious difficulty seeing even when wearing glasses? Answer Date of Assessment Author No 03/24/2021 1:14 PM Anna Abebe MA * Does this person have serious difficulty walking or climbing stairs? Answer Date of Assessment Author No 03/24/2021 1:14 PM SETH Ileana Anna KALYANI shaw * Does this person have difficulty dressing or bathing? Answer Date of Assessment Author No 03/24/2021 1:14 PM SETH IleanaAnna KALYANI shaw * Because of a physical, mental or emotional condition, does this person have difficulty doing errands alone such as visiting a doctor's office or shopping? Answer Date of Assessment Author No 03/24/2021 1:14 PM Anna Abebe KALYANI shaw documented as of this encounter Mental Status * Because of a physical, mental or emotional condition, does this person have serious difficulty concentrating, remembering or making decisions? Answer Entry Date Author No 03/24/2021 1:14 PM SETH Tejeda Anna KALYANI shaw documented in this encounter Ordered Prescriptions Prescription Sig Dispense Quantity Refills Last Filled Start Date End Date ondansetron (ZOFRAN-ODT) 4 mg Oral Tablet, Rapid DissolveIndication s:Nausea DISSOLVE 1 TABLET ON TONGUE EVERY DAY NEEDED FOR NAUSEA 30 Tablet 2 09/18/2024 documented in this encounter Plan of Treatment Not on file documented as of this encounter Goals Goal Patient Goal Type Associated Problems Recent Progress Patient-Stated? Author Maintain a healthy diet, exercise regularly and maintain an ideal body weight General No Jeferson Barron MD Stay Tobacco Free Lifestyle No Jeferson Barron MD Weight < 175 lb (79.379 kg) Weight 201 lb (91.2 kg)( 2:52 PM EDT) No Meredith Gan MD documented as of this encounter Visit Diagnoses Diagnosis Nausea Nausea alone documented in this encounter Discontinued Medications Medication Sig Discontinue Reason Start Date End Da te ondansetron (ZOFRAN-ODT) 4 mg Oral Tablet, Rapid DissolveIndications:Praveen sea DISSOLVE 1 TABLET ON TONGUE EVERY DAY NEEDED FOR NAUSEA 06/15/2024 09/18/2024 documented as of this encounter Additional Health Concerns Assessment Noted Time A fall risk assessment has been complete d for the patient 03/29/2022 3:12 PM EST documented as of this encounter Care Teams Aerobics Teacher Relationship Specialty Start Date End Date Jeferson Barron MD [address] [place] [address] [place] [address] PCP - General Family Medicine 03/24/21 documented as of this encounter
[2024-10-14 11:07] LABS: Coronavirus 19, PCR Not Detected (NotDetected); Influenza A, PCR Not Detected (NotDetected); Influenza B, PCR Not Detected (NotDetected)
[2024-10-14] MEDS: ACETAMINOPHEN 500MG TAB 1000 MG PO (11:07)
[2024-10-14] MEDS: PROCHLORPERAZINE 10MG/2ML VIAL 5 MG IV (11:07)
[2024-10-14] MEDS: LACTATED RINGERS 1000ML 1,000 ML 999 ML IV (11:07)
[2024-10-14] MEDS: AZITHROMYCIN 250MG TABLET 500 MG PO (11:07)
[2024-10-14 11:19] LABS: Hematocrit 40.2 % (37.0-47.0); Hemoglobin 13.9 g/dL (12.2-16.2); Immature Granulocytes % 0.5 %; Mean Corpuscular HGB Conc 34.6 g/dL (31.8-35.4); Mean Corpuscular Hemoglobin 31.5 pg (27.0-31.2); Mean Corpuscular Volume 91.2 fl (81-99); Nucleated Red Blood Cells % 0 %; Platelet Count 208 K/mm3 (142-424); Red Blood Count 4.41 M/mm3 (4.20-5.40); Red Cell Distribution Width-SD 40.7 fL; White Blood Count 9.7 K/mm3 (4.8-10.8)
--- NOTE | 2024-10-14 11:26 | PC.NURSE ---
patient back from [place] at this time
[2024-10-14 11:28] LABS: Chloride 103 mmol/L (98-107)
[2024-10-14 11:29] LABS: Albumin Level 4.7 g/dl (3.5-5.0); Potassium 4.0 mmoL/L (3.5-5.1); Sodium 134 mmol/L (136-145)
[2024-10-14 11:31] LABS: Alanine Aminotransferase 31 U/L (12-78); Alkaline Phosphatase 97 U/L (38-126); Anion Gap 12.0 mEq/L (5-15); Aspartate Amino Transferase 32 U/L (14-36); Bilirubin,Total 1.1 mg/dl (0.2-1.3); Blood Urea Nitrogen 8 mg/dl (7-17); Carbon Dioxide 23 mmol/L (22.0-30.0); Creatinine Clearance Estimated 93 mL/min (50-200); Creatinine,Serum 0.50 mg/dl (0.52-1.04); Estimated Glomerular Filt Rate 129 ml/min (>60); GFR (African American) 156 ML/MIN (>60)
[2024-10-14 11:32] LABS: Albumin/Globulin Ratio 1.5 (1.1-1.8); Calcium 9.4 mg/dl (8.4-10.2); Globulin 3.1 g/dL (1.3-3.2); Glucose 128 mg/dl (74-100); Total Protein,Serum 7.8 g/dl (6.3-8.2)
[2024-10-14 11:55] VITALS: BP 143/87; PULSE 76; RESP 20; TEMP 36.8; O2SAT 98
== END 2024-10-14 11:57 | disposition home or self-care (01) ==
PROVIDERS: Emergency Provider Emergency Medicine; PCP Pediatrics
DX: R51.9 Headache, unspecified (principal); R53.1 Weakness; F17.210 Nicotine dependence, cigarettes, uncomplicated; S50.312A Abrasion of left elbow, initial encounter; W55.03XA Scratched by cat, initial encounter
CPT/HCPCS: 70450; 80053; 85025; 87636; 96361; 96374; 96375; 99284; J0780; J1200; J7120